=== PATIENT | female | born 1995 | race Caucasian/White ===

== ENCOUNTER 2020-11-06 08:40 | Emergency (ER) | payer BC, SELFPAY ==
[2020-11-06 08:44] VITALS: BP 124/78; PULSE 111; RESP 18; TEMP 36.8; O2SAT 99
--- NOTE | 2020-11-06 08:46 | ED.GENADULT ---
HPI - General Adult General Chief complaint: Neuro Symptoms/Deficit Stated complaint: neuro symptoms/13 weeks Time Seen by Provider: 11/06/20 08:46 Source: patient Mode of arrival: ambulatory Limitations: no limitations History of Present Illness HPI narrative: 25-year-old female comes into the emergency department with complaints of an odd constellation of symptoms. Patient stated that earlier this morning she noted that she was having some numbness in her lower wrist and hand which then went away then it was her forearm which then went away and then she noticed some numbness and tingling in the left side of her face and behind her eye, this went away an event progressed into a headache. Patient endorses sensitivity to light and a headache that rates at a 7 out of 10. She notes that she has never had a migraine like this before but states that her sister does have a history of migraine headaches. Related Data Allergies Allergy/AdvReac Type Severity Reaction Status Date / Time No Known Allergies Allergy Verified 11/06/20 08:48 Review of Systems Review of Systems: Narrative: CONSTITUTIONAL: Denies fever, chills, or sweats. EYES: Denies visual changes, redness, or discharge. ENT: Denies rhinorrhea, congestion, sore throat, or otalgia. CARDIOVASCULAR: Denies chest pain, palpitations, or edema. RESPIRATORY: Denies cough or dyspnea. GASTROINTESTINAL: Denies abdominal pain, nausea, vomiting, or diarrhea. GENITOURINARY: Denies dysuria or hematuria. SKIN: Denies rash or itching. MUSCULOSKELETAL: Denies back pain, joint pain, or myalgia. NEUROLOGIC: Denies numbness, dizziness, or weakness. Endorses headache. PSYCHIATRIC: Denies anxiety or depression. Exam Narrative: Exam Narrative: GENERAL: Well-appearing, well-nourished, and in no acute distress. HEAD: Normocephalic, atraumatic. EYES: PERRLA and EOMI. ENT: Nares clear, no rhinorrhea or epistaxis. Mucous membranes moist. NECK: Supple. No adenopathy or masses. No carotid bruits or JVD CHEST: Clear to auscultation. No respiratory distress. No wheezes rales or rhonchi HEART: Regular rate and rhythm. No murmur heard. Normal peripheral pulses. ABDOMEN: Soft, nontender, nondistended, normal active bowel sounds. EXTREMITIES: Normal range of motion. No edema. SKIN: Warm, dry, no rash. NEURO: No focal deficits, no speech deficits, equal strength and sensation bilaterally in all extremities. Alert and oriented x3. PSYCH: Normal mood and affect. Course Reevaluation(s) Reevaluation #1: Patient resting comfortably in a dark room. I reevaluated her and provided care update. She states that her headache is markedly improved. On arrival she noted it was a 7-8 out of 10. Patient now states it is down to a 2 or 3. She is feeling well and ready to go home. Advised that she follow-up with her primary care physician or PAPER RECLAIMING MACHINE OPERATOR. Time: 09:56 Vital Signs Vital signs: Vital Signs Temperature 36.8 C 11/06/20 08:44 Pulse Rate 111 H 11/06/20 08:44 Respiratory Rate 18 11/06/20 08:44 Blood Pressure 124/78 11/06/20 08:44 Pulse Oximetry 99 11/06/20 08:44 Temperature 36.8 C 11/06/20 08:44 Pulse Rate 111 H 11/06/20 08:44 Respiratory Rate 18 11/06/20 08:44 Blood Pressure 124/78 11/06/20 08:44 Pulse Oximetry 99 11/06/20 08:44 Medical Decision Making MDM Narrative Medical decision making narrative: In brief this 25-year-old female came in to the emergency department with an odd constellation of symptoms of intermittent relapsing numbness on one side of her body. This was then followed by a headache. This numbness and tingling that the patient was describing was likely migraine aura. Her mother is present with her did note that migraines do tend to run in the family. Patient treated conservatively with IV fluids, Reglan/Benadryl and Tylenol. She did note marked improvement in her symptoms. Will discharge patient to follow-up with PAPER RECLAIMING MACHINE OPERATOR. Patient encouraged to r
[2020-11-06] MEDS: ACETAMINOPHEN 500 MG TABLET 1000 MG PO (09:00)
[2020-11-06] MEDS: diphenhydrAMINE HCl INJ 50 MG/ML VIAL 25 MG IV PUSH (09:00)
[2020-11-06] MEDS: METOCLOPRAMIDE HCL INJ 10 MG/2 ML VIAL IV PUSH (09:00)
[2020-11-06] MEDS: LACTATED RINGERS 1,000 ML 999 ML IV CONT (09:00)
[2020-11-06 10:09] VITALS: BP 120/79; PULSE 75; RESP 15; O2SAT 100
== END 2020-11-06 10:16 | disposition home or self-care (01) ==
PROVIDERS: Emergency Provider Emergency Medicine; PCP Registered Nurse
DX: O99.351 Diseases of the nervous system complicating pregnancy, first trimester (principal); G43.109 Migraine with aura, not intractable, without status migrainosus; Z3A.13 13 weeks gestation of pregnancy
CPT/HCPCS: 96361; 96374; 96375; 99284; A9270; J1200; J2765; J7120

== ENCOUNTER 2021-04-21 03:30 | Inpatient (IN) | payer BC, SELFPAY ==
[2021-04-21] VITALS (91 sets, daily range): BP systolic 65–146; BP diastolic 44–109; PULSE 60–127; TEMP 36.6–37.2; O2SAT 98–100; BMI 30.8
--- OUTSIDE RECORDS SUMMARY | 2021-04-21 03:54 | XMS_ITS | Encounter Summary ---
:1995 Author Care Team Providers Name Role Phone Anna Nielsen CHARLES Primary Care Provider [phone] Reason for Visit None recorded. Assessment and Plan 1. Uterine size for dates discre pancy ? US, obstetric, follow-up Discussion Note: None recorded.Patient educational handouts: No information available. Plan of Care Reminders Provider Appointments Ob Routine Lauren Crespo, 04/28/2021 CNM 2:45PM ? Ob Routine Mare Crespo, 05/05/2021 CNM 9:00AM ? Ob Routine Mare Crespo, 05/12/2021 CNM 9:15AM Lab None ? ? recorded. Referral None ? ? recorded. Procedures None ? ? recorded. Surgeries None ? ? recorded. Imaging , [place] [facility], Follow-up 03/23/2021 Medications Name Start Date ? ? Gummies ? Medications Administered None recorded. Vitals None recorded. Results Lab Results None recorded. Allergies Code Code System Name Reaction Severity Onset 0951785 RxNorm Latex ? ?
--- OUTSIDE RECORDS SUMMARY | 2021-04-21 03:54 | XMS_ITS ---
:1995 Author Care Team Providers Name Role Phone RADHA COFFEY APRN Primary Care Provider [phone] Allergies Code Code System Name Reaction Severity Status Onset 4842082 RxNorm Latex ? ? Active ? Medications Name Status Start Date Stop Date ? ? amoxicillin 500 mg capsule Completed ? 11/28 TAKE 1 CAPSULE BY MOUTH 3 TIMES A DAY FOR 5 DAYS amoxicillin 500 mg tablet Completed 07/22/20132013 take 1 tablet (500MG) by oral route every 8 hours escitalopram 10 mg tablet Completed 10/30/20132014 take 1 tablet (10MG) by oral route every day hydrocodone 5 mg-acetaminophen 325 mg tablet Completed ? 11/28/2020 TAKE 1 TABLET BY MOUTH EVERY 4 HOURS NEEDED FOR PAIN Macrobid 100 mg capsule Completed 05/06/2014 05/15/20 14 take 1 capsule by oral route every 12 hours with food Metrogel Vaginal 0.75 % Completed 11/25/2014 08/16/20 15 insert 1 applicatorful by vaginal route every day at bedtime NuvaRing 0.12 mg-0.015 mg/24 hr vaginal Completed 02/02/20 14 02/04/2014 insert 1 vaginal ring by vaginal route every month leave in place for 3 weeks, remove for 1 week Ortho-Cyclen (28) 0.25 mg-35 mcg tablet Completed 01/06/20 16 09/29/2020 take 1 tablet by oral route every day Gummies Active ? Not available Pyridium 200 mg tablet Completed 05/06/2014 5 take 1 tablet by oral route 3 times every day after meals Triveen-Duo DHA 29 mg-1 mg-400 mg oral pack Completed 09/201409/14/2015 take 2 by Oral route once for 30 days Problems Name Status Onset Date Source ?
--- OUTSIDE RECORDS SUMMARY | 2021-04-21 03:54 | XMS_ITS | Encounter Summary ---
:1995 Author Care Team Providers Name Role Phone Anna Nielsen CHARLES Primary Care Provider [phone] Reason for Visit OB visit OB [id number] EDC 05/10/2021 LMP 08/07/2020 Assessment and Plan Assessment Note Patient is _34__weeks . Dis cussed plan. 1. Routine care Discussion Note: None recorded.Patient educational handouts: No information available. Plan of Care Reminders Provider Appointments Ob Routine Lauren Crespo, 04/28/2021 CNM 2:45PM ? Ob Routine Mare Crespo, 05/05/2021 CNM 9:00AM ? Ob Routine Mare Crespo, 05/12/2021 CNM 9:15AM Lab None ? ? recorded. Referral None ? ? recorded. Procedures None ? ? recorded. Surgeries None ? ? recorded. Imaging None ? ? recorded. Medications Name Start Date ? ? Gummies ? Medications Administered None recorded. Vitals Height Weight BMI Blood Pressure 5 ft 3 in 173 lbs 30.6 kg/m2 114/75 mm[Hg] Results Lab Results None recorded.
--- OUTSIDE RECORDS SUMMARY | 2021-04-21 03:55 | XMS_ITS | Encounter Summary ---
:1995 Author Care Team Providers Name Role Phone Anna Nielsen APRN Primary Care Provider [phone] Reason for Visit urinary tract infection Ob software engineer web services asked pt to come in and jose ve urine sample. She is aware OB triage will contact her with recommendations. Spoke with RN she will discuss results with AD. Dalton+mao genao Assessment and Plan Assessment Note UA, urine culture Rx: Will call if culture requires change of antibiotic therapy Call office if symptoms worsen or persis t despite treatment Follow up for WWE 1. Urinary tract infectious dise ase ? urinalysis, dipstick ? culture, urine Discussion Note: None recorded.Patient educational handouts: No information available. Plan of Care Reminders Provider Appointments Ob Routine Lauren Crespo, 04/28/2021 CNM 2:45PM ? Ob Routine Mare Crespo, 05/05/2021 CNM 9:00AM ? Ob Routine Mare Crespo, 05/12/2021 CNM 9:15AM Lab Urinalysis, Neel bettencourt Dipstick 2021 ? Culture, Reddy Ngyuen Urine 2021 Hospital (Lab) Referral None ? ? recorded. Procedures None ? ? recorded. Surgeries None ?
--- OUTSIDE RECORDS SUMMARY | 2021-04-21 03:55 | XMS_ITS | Encounter Summary ---
:1995 Author Care Team Providers Name Role Phone Anna Nielsen CHARLES Primary Care Provider [phone] Reason for Visit OB visit OB [id number] EDC 05/10/2021 LMP 08/07/2020 Assessment and Plan Assessment Note Patient is 24___weeks . Dis cussed plan. 1. Routine care Discussion Note: None recorded.Patient educational handouts: No information available. Plan of Care Reminders Provider Appointments Ob Routine Lauren Crespo, 04/28/2021 CNM 2:45PM ? Ob Routine Mare Crespo, 05/05/2021 CNM 9:00AM ? Ob Routine aMre Crespo, 05/12/2021 CNM 9:15AM Lab None ? ? recorded. Referral None ? ? recorded. Procedures None ? ? recorded. Surgeries None ? ? recorded. Imaging None ? ? recorded. Medications Name Start Date ? ? Gummies ? Medications Administered None recorded. Vitals Height Weight BMI Blood Pressure 5 ft 3 in 157 lbs 27.8 kg/m2 118/80 mm[Hg] Results Lab Results None recorded.
--- OUTSIDE RECORDS SUMMARY | 2021-04-21 03:55 | XMS_ITS | Encounter Summary ---
:1995 Author Care Team Providers Name Role Phone Anna Nielsen CHARLES Primary Care Provider [phone] Reason for Visit OB visit Assessment and Plan 1. Routine care Discussion Note: None recorded.Patient [...] BMI Blood Pressure 5 ft 3 in 163 lbs 28.9 kg/m2 116/76 mm[Hg] Results Lab Results None recorded. Allergies Code Code System Name Reaction Severity Onset [id number] RxNorm Latex ? ? ? Pro
--- OUTSIDE RECORDS SUMMARY | 2021-04-21 03:55 | XMS_ITS ---
:1995 Author Care Team Providers Name Role Phone [facility] Primary Care Provider Unavailable Allergies Code Code System Name Reaction Severity Status Onset [id number] RxNorm Latex Rash ? Active ? Medications Name Status Start Date Stop Date ? ? Afluria Qd (36 mos up)(PF)60 mcg (15 mcg x4)/0.5 mL IM s yringe Active ? Not available PHARMACY ADMINISTERED amoxicillin 500 mg capsule Completed ? 08/30 TAKE 1 CAPSULE BY MOUTH 3 TIMES A DAY FOR 5 DAYS azithromycin 250 mg tablet Completed ? 12/06 diclofenac sodium 75 mg tablet,delayed Completed ? 12/06/2016 release escitalopram 20 mg tablet Completed ? 2016 Flucelvax Quad 9998-4799 (PF) 60 mcg (15 mcg x 4)/0.5 mL IM syri nge Completed ? 08/30/2020 TO BE ADMINISTERED BY PHARMACIST FOR IMMUNIZATION fluoxetine 20 mg capsule Completed ? 018 Fluvirin 7059-6936 45 mcg (15 mcg x 3)/0.5 mL intramus cular suspension Completed ? 12/06/2016 ADM 0.5ML IM UTD Fluzone Quad (PF) 60 mcg (15 mcg x 4)/0.5 mL IM syring e Completed ? 08/30/2020 TO BE ADMINISTERED BY PHARMACIST FOR IMMUNIZATION hydrocodone 5 mg-acetaminophen 325 mg tablet Completed ? 08/30/2020 TAKE 1 TABLET BY MOUTH EVERY 4 HOURS NEEDED FOR PAIN metronidazole 500 mg tablet Active ? Not available phenazopyridine 100 mg tablet Completed ? TAKE 1 TABLET BY MOUTH 3 TIMES A DAY AFTER MEALS Sprintec (28) 0.25 mg-35 mcg tablet Completed ? 12/06/2016 Problems No Known Problems Procedures
--- OUTSIDE RECORDS SUMMARY | 2021-04-21 03:55 | XMS_ITS | Encounter Summary ---
:1995 Author Care Team Providers Name Role Phone Anna Nielsen CHARLES Primary Care Provider [phone] Reason for Visit OB visit Assessment and [...] BMI Blood Pressure 5 ft 3 in 162 lbs 28.7 kg/m2 115/80 mm[Hg] Results Lab Results None recorded. Allergies Code Code System Name Reaction Severity Onset [id number] RxNorm Latex ? ? ? Pro
--- NOTE | 2021-04-21 03:56 | LDADM ---
This patient, Zoila Collier, was admitted to Labor/Delivery/Recovery 105 on 04/21/21 at 03:30. Plans for labor, pain management and were discussed with patient. Patient/family oriented to hospital policies and general routines including ID bracelet, bed and alarms, visiting hours, pain management, procedures, bathroom and other care routines, personal items, smoking policy, room service/diet and guest tray routines, infant security routines, and visiting hours. Patient/Family are encouraged to report perceived risks to care and to ask questions if they do not understand what they are told or what they should do. See OBIX for further documentation.
[2021-04-21 04:19] LABS: Basophils Absolute Auto 0.1 K/mm3 (0.0-0.1); Basophils Percent Auto 0.7 % (0.2-1.2); Eosinophils Absolute Auto 0.5 K/mm3 (0-0.3); Eosinophils Percent Auto 3.7 % (0-4.4); Hematocrit 32.2 % (37.0-47.0); Hemoglobin 10.5 g/dL (12.0-15.0); Immature Granulocyte Absolute 0.08 K/mm3 (0.00-0.031); Immature Granulocyte Percent A 0.6 % (0-0.5); Lymphocytes Absolute Auto 2.94 K/mm3 (0.9-3.2); Lymphocytes Percent Auto 21.5 % (18.3-44.2); Mean Corpuscular HGB Conc 32.6 g/dl (32-36); Mean Corpuscular Hemoglobin 28.7 pg (26-34); Mean Platelet Volume 9.5 fl (7.4-10.4); Monocytes Absolute Auto 0.9 K/mm3 (0.1-0.6); Monocytes Percent Auto 6.5 % (2.6-8.5); Neutrophils Absolute Auto 9.2 K/mm3 (1.3-6.7); Platelet Count Result 315 k/mm3 (150-375); Red Blood Count 3.66 M/mm3 (4.2-5.4); Red Cell Distribution Width 12.7 % (11.5-14.5); White Blood Count 13.7 K/mm3 (4.5-10.0)
[2021-04-21] MEDS: LACTATED RINGERS 1,000 ML 125 ML IV CONT ×2 (05:05→08:40)
[2021-04-21] MEDS: OXYTOCIN 30 UNITS/NS 500 ML 30 UNITS/500 ML BAG 125 UNITS IV CONT ×2 (05:06→14:34)
--- NOTE | 2021-04-21 07:22 | WPDOBADMIT ---
Obstetrics - Admit Note Admission Note: record reviewed. No pertinent additions to the history and/or any subsequent changes in the physical findings that are not consistent with the expected course of the were found. SROM at home, admitted to Additions to the history and/or subsequent changes in the physical findings follow. None.
[2021-04-21] MEDS: fentaNYL CITRATE INJ (*CRX) 100 MCG/2 ML VIAL 50 MCG IV PUSH ×2 (08:45→09:41)
[2021-04-21] MEDS: ONDANSETRON INJ 4 MG/2 ML VIAL IV PUSH (08:45)
--- NOTE | 2021-04-21 08:49 | WPDANESEPP ---
Anes - Eval Pre Procedure Procedure: Labor epidural Date/Time: 04/21/21 08:49 Surgeon: Petey Preop Diagnosis: Abd pain with contractions Pre Op Diagnosis: SROM Patient Data Age: 26 Gender: F Height: 1.6 m Weight: 79 kg Last Vital Signs Temp 97.9 F 04/21/21 06:31 Pulse 67 04/21/21 08:46 BP 136/88 04/21/21 08:46 Allergies Allergy/AdvReac Type Severity Reaction Status Date / Time latex Allergy Rash Verified 04/10/21 12:46 Home Medications Medication Instructions Recorded Confirmed Type PNV cmb#95-ferrous fumarate-FA 1 tablet PO DAILY 04/10/21 04/10/21 History [] Laboratory Tests 04/21/21 04/21/21 04/21/21 04:10 04:10 04:10 WBC 13.7 K/mm3 H K/mm3 (4.5-10.0) RBC 3.66 M/mm3 L M/mm3 (4.2-5.4) Hgb 10.5 g/dL L g/dL (12.0-15.0) Hct 32.2 % L % (37.0-47.0) MCV 88.0 fl fl (80-100) MCH 28.7 pg pg (26-34) MCHC 32.6 g/dl g/dl (32-36) RDW 12.7 % % (11.5-14.5) Plt Count 315 k/mm3 k/mm3 (150-375) MPV 9.5 fl fl (7.4-10.4) Immature Gran % (Auto) 0.6 % H % (0-0.5) Neut % (Auto) 67.0 % % (45.5-73.1) Lymph % (Auto) 21.5 % % (18.3-44.2) Parmer % (Auto) 6.5 % % (2.6-8.5) Eos % (Auto) 3.7 % % (0-4.4) Baso % (Auto) 0.7 % % (0.2-1.2) Lymph # (Auto) 2.94 K/mm3 K/mm3 (0.9-3.2) Parmer # (Auto) 0.9 K/mm3 H K/mm3 (0.1-0.6) Eos # (Auto) 0.5 K/mm3 H K/mm3 (0-0.3) Baso # (Auto) 0.1 K/mm3 K/mm3 (0.0-0.1) Abs Immat Gran (auto) 0.08 K/mm3 H K/mm3 (0.00-0.031) Absolute Neuts (auto) 9.2 K/mm3 H K/mm3 (1.3-6.7) Absolute Nucleated RBC 0.0 K/mm3 K/mm3 (0.0-0.012) Nucleated RBC % 0.0 % % (0.0-0.2) RPR Pending Blood Type A Positive Antibody Screen Negative Patient hx anesthesia problems: none Family hx anesthesia problems: none PMFSH Past Medical History Medical History (Updated 04/21/21 @ 08:50 by Delta Alcantar CRNA) Anxiety Overweight (BMI 25.0-29.9) and not yet delivered Family History Family History Other Rheumatoid arthritis Mother Rheumatoid arthritis Social History Social History Smoking status: Never smoker Substance use: never Gender identity (if verbalized by the patient): Female Spiritual care concerns: No Exam Day of Procedure 04/21/21 08:49 Patient weight: overweight Airway: Mallampati scale class II Neurological: alert and oriented
[2021-04-21] MEDS: PHENYLEPHRINE 1,000 MCG/10 ML SYRINGE 100 MCG IV PUSH (09:50)
[2021-04-21 10:28] LABS: Rapid Plasma Reagin Non-Reactive (NonReactive)
--- NOTE | 2021-04-21 14:06 | P.PCNOB_ITS ---
OB - Delivery Note Procedure Delivery date: 04/21/21 Procedure: vaginal delivery Intrapartal events: None Delivery augmentation: pitocin Delivery monitor: external FHT and external uterine Route of delivery: Laceration Description: Perineal - 2nd Degree Delivery repair: vicryl Specimen: No Quantitative Blood Loss (ml): 125 Anesthesia type: Epidural Disposition: floor [place] Baby Date of : 04/21/21 Time of : 13:56 Weeks of gestation at delivery: 37 Infant gender: Male Weight (pounds): 6 Weight (ounces): 15 presentation: vertex position: Right Occiput Anterior Placenta delivery description: Spontaneous cord vessel description: 3 Vessels, Nuchal Cord, Loose, Reduced and Clamped/Cut score one minute: 9 score five minutes: 9 Narrative: mother and baby skin to skin in stable condition
[2021-04-21] MEDS: WITCH HAZEL 40 PADS 1 PAD TOPICAL (16:25)
[2021-04-21] MEDS: BENZOCAINE 20% AER SPR (*SP) 56 GM CAN 1 SPRAY TOPICAL (16:25)
[2021-04-22 01:09] VITALS: BP 110/62; PULSE 80; PULSE 83; RESP 16; TEMP 36.4; O2SAT 95
[2021-04-22 05:19] VITALS: BP 111/63; PULSE 67; PULSE 77; RESP 15; TEMP 36.3; O2SAT 98
[2021-04-22 05:20] VITALS: BP 111/63; PULSE 65
[2021-04-22 05:41] LABS: Hematocrit 31.9 % (37.0-47.0); Hemoglobin 10.4 g/dL (12.0-15.0)
[2021-04-22 08:15] VITALS: BP 97/53; PULSE 74; TEMP 36.8
--- NOTE | 2021-04-22 10:33 | P.PNOB_ITS ---
OB - PN: Subj Subjective Date/time seen: 04/22/21 10:33 Patient comments: no complaints baby status: doing well [place] feeding status: exclusively breast feeding OB - PN: Obj Data Labs CBC & Chem 7: 04/22/21 05:23 Labs: Laboratory Results - last 24 hr 04/22/21 05:23 Hgb 10.4 L Hct 31.9 L OB - PN A/P Plan day: 1 Plan: routine care and discharge home Time Spent With Patient Time: Total time spent is greater than 50% in coordination of care (as d ocumented) at patient's floor/unit and/or counseling patient: Review of Systems Review of Systems: All systems reviewed & are unremarkable except as noted in HPI and below Exam 2 Narrative: perineum clean and dry Const: General: cooperative Nutritional Appearance: well nourished Psych: Insight: Good insight present (Psych) Judgement: Good judgement present (Psych)
--- NOTE | 2021-04-22 10:35 | PM.OBDSVD ---
DS: Admitting Diagnosis Admitting Diagnosis SROM OB - DS: Summary OB Procedures : None OB Procedures Intrapartum: Spontaneous Vag Delivery OB Procedures: : None Time Spent with Patient Time attestation: Total time spent providing and/or coordinating discharge services: DS: Data Data Completed and Pending Labs on day of discharge: Labs from last 24 hours 04/22/21 05:23 Hgb 10.4 L Hct 31.9 L Discharge Plan Discharge Attending physician on discharge: Sergio Angelo Discharging Clinician: Mare Crespo Patient Disposition: Home, Self-Care Activity: pelvic rest Diet: regular Patient Instructions: Antibiotic Form Stand Alone Forms: General Discharge Information Follow-up/Referrals: Mare Crespo, MIKALM [Certified Nurse Automotive Sales Associate] - 4 Weeks Discharge Medications: New ibuprofen 600 mg Tablet 600 mg PO Q6H PRN (Reason: Cramping) Qty: 30 RF: 0 Continued PNV cmb#95-ferrous fumarate-FA [] 28 mg iron- 800 mcg Tablet 1 tablet PO DAILY RF: 0 Date of admission: 04/21/21 03:30 Primary Care Provider: GiaAnna Admitting Provider: Sergio Angelo Attending physician on admission: Sergio Angelo Condition: Stable
[2021-04-22] MEDS: MULTIVIT/MIN/PREN/FOL AC/IRON TABLET 1 TAB PO (11:22)
[2021-04-22] MEDS: DOCUSATE SODIUM 100 MG CAPSULE PO (11:22)
[2021-04-22 13:44] VITALS: BP 114/57; PULSE 75; RESP 14; TEMP 36.8
--- NOTE | 2021-04-22 15:25 | PC.NURSE ---
Patient transferred to post room #285 from labor and delivery. Support person present. Oriented to unit, room, information board, rooming in, admission packet and security measures. Patient verbalizes understanding.
[2021-04-22 19:30] VITALS: BP 110/63; PULSE 80; RESP 18; TEMP 36.9; O2SAT 98
[2021-04-23] MEDS: ACETAMINOPHEN 325 MG TABLET 650 MG PO (01:04)
[2021-04-23 08:00] VITALS: BP 112/55; PULSE 86; RESP 18; TEMP 36.8; O2SAT 98
--- NOTE | 2021-04-23 08:50 | PC.NURSE ---
Patient viewed the discharge video Mother & Baby Care, The First Two Weeks . Patient was given the opportunity and encouraged to ask questions. Patient verbalized understanding of information shared and has been given the mother/baby guide for home reference.
[2021-04-23] MEDS: MULTIVIT/MIN/PREN/FOL AC/IRON TABLET 1 TAB PO (08:51)
[2021-04-23] MEDS: DOCUSATE SODIUM 100 MG CAPSULE PO (08:51)
[2021-04-23] MEDS: IBUPROFEN 600 MG TABLET PO (08:51)
--- NOTE | 2021-04-23 10:33 | PM.OBPNVD ---
OB - PN: Subj Subjective Date/time seen: 04/23/21 10:33 Patient comments: no complaints baby status: doing well [place] feeding status: breast and bottle feeding OB - PN: Obj Data Labs CBC & Chem 7: 04/22/21 05:23 OB - PN A/P Plan day: 2 Plan: routine care and discharge home Time Spent With Patient Time: Total time spent is greater than 50% in coordination of care (as documented) at patient's floor/unit and/or counseling patient: Review of Systems Review of Systems: All systems reviewed & are unremarkable except as noted in HPI and below Exam Const: General: cooperative and healthy appearing Psych: Insight: Good insight present (Psych) Judgement: Good judgement present (Psych)
--- NOTE | 2021-04-23 10:34 | PM.OBDSVD ---
DS: Admitting Diagnosis Admitting Diagnosis SROM OB - DS: Summary OB Procedures : None OB Procedures Intrapartum: Spontaneous Vag Delivery OB Procedures: : None Time Spent with Patient Time attestation: Total time spent providing and/or coordinating discharge services: Discharge Plan Discharge Attending physician on discharge: Sergio Angelo Discharging Clinician: Mare Crespo Patient Disposition: Home, Self-Care Activity: pelvic rest Diet: regular Patient Instructions: Antibiotic Form Stand Alone Forms: General Discharge Information Follow-up/Referrals: Mare Crespo CNM [Certified Nurse Aligner Barrel And Receiver] - 4 Weeks Discharge Medications: New ibuprofen 600 mg Tablet 600 mg PO Q6H PRN (Reason: Cramping) Qty: 30 RF: 0 Continued PNV cmb#95-ferrous fumarate-FA [] 28 mg iron- 800 mcg Tablet 1 tablet PO DAILY RF: 0 Date of admission: 04/21/21 03:30 Primary Care Provider: GiaAnna Admitting Provider: Sergio Angelo Attending physician on admission: Sergio Angelo Condition: Stable
[2021-04-26 09:46] VITALS: BP 119/74; PULSE 110; RESP 20; TEMP 38.2; O2SAT 100
--- NOTE | 2021-04-27 09:07 | PM.OBDSVD ---
DS: Admitting Diagnosis Admitting Diagnosis r/o SROM OB - DS: Summary OB Procedures : None OB Procedures Intrapartum: Other (undelivered) OB Procedures: : None Time Spent with Patient Time attestation: Total time spent providing and/or coordinating discharge services: Discharge Plan Discharge Attending physician on discharge: Sergio Angelo Consulting providers: Mare Crespo Discharging Clinician: Mare Crespo Patient Disposition: Home, Self-Care Activity: pelvic rest Diet: regular Discharge Instructions: Education: Mom and Baby Guide and Preeclampsia Handout Given to: Mother Follow-Up: Call your delivering provider's office for an appointment to be seen in: 4 Weeks Mom and baby [facility] the follow-up appointment. Appointment Date/Time: April 26, 2021 at 10:00 am What to expect at your follow-up visit: Physical Assessment Call [phone] if you are unable to keep your appointment time. BREAST CARE: * Wear a snug supportive bra. * For engorgement discomfort: Breast Feeding: * Apply warm moist washcloths * Express milk as needed to relieve engorgement * Wear loose clothing Bottle Feeding: * May apply ice packs * For sore nipples: * Identify correct latch-on * Apply warm moist washcloths before and after nursing * Air dry nipples after nursing * May apply Lansinoh cream to nipples EPISIOTOMY/PERINEAL CARE: * Until bleeding stops, use your carlos bottle after urinating * Change your pad frequently throughout the day * You may take sitz baths several times a day (fill your bathtub with warm water and soak for 20 minutes.) Do NOT bathe in the water * No tub baths until seen by your physician - You may shower ACTIVITY: * Rest as much as possible. * Do not exercise or lift anything heavier than your baby (such as laundry or other children.) * Avoid stairs or driving as much as possible. * Do not put anything into the vagina. No douching, tampons, or sexual activity until seen by physician. NOTIFY PHYSICIAN IF YOU HAVE ANY QUESTIONS OR IF ANY OF THE FOLLOWING SYMPTOMS OCCUR: * If your episiotomy or stitches becomes red, swollen, or more painful than what you have experienced in the hospital. * If your vaginal bleeding becomes foul smelling. * If your vaginal bleeding becomes more heavy than a period or if your bleeding changes from pink to bright red. However, you may pass an occasional walnut-sized clot once or twice for the first week . * If you experience a sharp, shooting pain in you calves. * If you discover a hard, reddened area on your breast or if you experience flu-like symptoms. DIET: * Eat regular, well-balanced meals. * Drink plenty of fluids daily. If , drink to thirst. Stand Alone Forms: General Discharge Information Follow-up/Referrals: Mare Crespo CNM [Certified Nurse Human Resources Support Specialist] - 4 Weeks Discharge Medications: New ibuprofen 600 mg Tablet 600 mg PO Q6H PRN (Reason: Cramping) Qty: 30 RF: 0 Continued PNV cmb#95-ferrous fumarate-FA [] 28 mg iron- 800 mcg Tablet 1 tablet PO DAILY RF: 0 Date of admission: 04/21/21 03:30 Primary Care Provider: GiaAnna Admitting Provider: Sergio Angelo Attending physician on admission: Sergio Angelo Condition: Stable
== END 2021-04-23 12:23 | disposition home or self-care (01) | DRG 807 ==
LOC: ANHLDR 04:12 → ANHOBPP 17:56 → ANHOB2 04-22 15:49
PROVIDERS: Advanced Practice Midwife; Admitting Provider Obstetrics & Gynecology; PCP Registered Nurse; Visit Provider Obstetrics & Gynecology
DX: O69.81X0 Labor and delivery complicated by cord around neck, without compression, not applicable or unspecified (principal); Z37.0 Single live birth; O70.1 Second degree perineal laceration during delivery; Z3A.37 37 weeks gestation of pregnancy
CPT/HCPCS: 36415; 85014; 85018; 85025; 86592; 86850; 86900; 86901; A9270; J2370; J2405; J2590; J2795; J3010; J7120

== ENCOUNTER 2021-07-04 12:00 | Outpatient (RCR) | payer BC, SELFPAY ==
--- NOTE | 2021-07-04 12:05 | PC.NURSE ---
IN 1010 OUT 1205 HISTORY: Pt. delivered at [facility] at 37 weeks. had no complications after delivery. Mother had no complications after delivery. is now 9 weeks old. Infant appears to be well cared for. Infant has been seen by ICP as scheduled. Infant last seen by ICP at 2 month check up. Mother reports: Currently at 8 wets per day and 6 yellow seedy stools per day. weight: 6#15 Discharge weight: Last Weight: 11#12 at 2 month visit Mother feels has a lip tie. Mother has struggled with latch since . Infant was early and very sleepy at breast, required supplement within the first day. Mother has had pain with feeding and has pumped and bottle fed for the first month, then made attempts to return to breast at least once per day and for night feedings. Mother states when does latch he will nurse for long periods up to 45 minutes and continue to act hungry with continued rooting. Mother will always pump after putting infant to breast and bottle feed. Infant will take 2-3 oz of EBM per feeding every 2-4 hours. Mother is pumping 6 oz every 2-4 hours. Mother has no difficulties or discomfort with pumping. Mother wishes: Evaluation of lip tie and possible posterior tongue tie. Return to breast with less pumping and bottle feeding. OBSERVATION: Tongue is not able to move freely past gum ridge, tongue not observed cupping or thrusting past gum ridge. Upper lip appears o have a thick frenulum into upper gum ridge. Mother has everted nipples with skin intact no redness, blisters, scabbing or abrasions noted. Mother reports tenderness and pain with feeding. Assisted with to breast. Reviewed positioning/alignment in cross cradle, holding breast in ?U? hold and guided asymmetrical latch on. Reviewed rational for each. able to latch within a few attempts. Latch is shallow, demonstrated how to adjust latch more deeply while feeding. nursed eagerly with steady draws and occasional swallowing noted for a short burst before slipping to shallow latch. Infant is unable to maintain deep latch. Suck is weak with long pausing. Reviewed signs of a correct latch, effective nursing and suck swallow ratio. Suggested mother stimulate while feeding to increase stimulate, increase intake and to assist with maintaining deep latch. Infant was unable to maintain latch without discomfort to mother. Infant would slip to shallow latch causing tenderness. Demonstrated how to adjust latch more deeply while feeding if needed. Offered and explained the nipple shield to attempt to assist with maintaining a deep latch. Instructions given on application and cleaning of shield. Discussed nipple shield precautions and possible complications. Patient able to return demonstration on proper application of shield. Discussed the need to continue pumping if infant continues to nurse with the shield. Patient verbalizes understanding. Infant was able to latch deeply with shield with less discomfort to mother. continued with weak slow chewy suck. Infant at breast for 20 minutes with long pausing and occasional swallowing noted. Infant fussy and hungry after . Mother completed feeding with EBM bottle. Discussed the difference of effective vs ineffective feeding. Reviewed infant is latching with good burst of suckling, he is not feeding consistently with adequate milk transfer at this time and continues to need to be supplement after . Feeding options discussed, Feeding Plan is for mother to put to breast each feeding for up to 15 minutes using the nipple shield if she chooses. Discussed if infant begins to nurse effectively with long draws and frequent swallowing noted, may decrease supplementation and discontinue pumping. Suggested mother have LC charter coordinator observe f
== END 2021-09-28 13:55 | disposition home or self-care (01) ==
LOC: ANHOBOP 12:00
PROVIDERS: PCP Registered Nurse; Visit Provider Pediatrics
DX: Z39.1 Encounter for care and examination of lactating mother (principal)
CPT/HCPCS: 99212; G0463

== ENCOUNTER 2022-10-13 14:51 | Emergency (ER) | payer BC, SELFPAY ==
[2022-10-13 15:32] VITALS: BP 108/59; PULSE 98; RESP 16; TEMP 37.5; O2SAT 99
--- NOTE | 2022-10-13 16:06 | ED.EYEPROB ---
HPI - Eye Problem General Chief complaint: Eye Problems Stated complaint: pink eye Time Seen by Provider: 10/13/22 16:06 Source: patient, RN notes reviewed and old records reviewed Mode of arrival: ambulatory Limitations: no limitations History of Present Illness HPI Narrative: 27-year-old female presents to the [facility] with eye redness and crusting over for the last 2-3 days. Eyes were crusted over this morning. Feels like there is sand in her eyes. Does not wear contact lenses. Related Data Allergies Allergy/AdvReac Type Severity Reaction Status Date / Time latex Allergy Rash Verified 10/13/22 15:35 Review of Systems Review of Systems: All systems reviewed & are unremarkable except as noted in HPI and below Constitutional: Constitutional: Reports no additional constitutional complaints Eyes: Eyes: Reports as per HPI ENT: Reports system reviewed and no additional complaints, except as documented Cardiovascular: Cardiovascular: Reports no additional cardiovascular complaints, Denies chest pain and Denies dyspnea Respiratory: Respiratory: Reports no additional respiratory complaints, Denies chest congestion, Denies cough and Denies dyspnea Gastrointestinal: Gastrointestinal: Reports no additional gastrointestinal complaints, Denies abdominal pain, Denies nausea and Denies vomiting Musculoskeletal: Musculoskeletal: Reports no additional musculoskeletal complaints Integumentary/Breasts: Skin/Breast: Reports system reviewed and no additional complaints, except as docu Neurologic: Reports system reviewed and no additional complaints, except as documented Psychiatric: Psychiatric: Reports no additional psychiatric complaints Allergic/Immunologic: Allergic/Immunologic: Reports no additional allergic/immunologic complaints [facility] Past Medical History Medical History Anxiety Overweight (BMI 25.0-29.9) and not yet delivered Family History Family History Other Rheumatoid arthritis Mother Rheumatoid arthritis Social History Social History Smoking status: Never smoker Substance use: never Gender identity (if verbalized by the patient): Female Spiritual care concerns: No Comments At the time of my signature, I reviewed and agree with the nursing past medical, surgical, social, and family history. There is no relevant family history pertinent to the patient complaint. Exam Const: General: cooperative, healthy appearing, comfortable, no acute distress, well developed, alert and well nourished Nutritional Appearance: well nourished Orientation/consciousness: patient oriented x3 Limitations: no limitations HENMT: Head: normal to inspection Ears: hearing grossly normal bilaterally and external ears normal Face/Nose/Sinus: Normal external nose present, Normal nares present, Normal nasal mucous membranes and turbinates present and normal facial exam Face and sinus: normal facial exam Mouth: Yes Normal oral and palatal mucosa present, Yes lip normal and Yes moist mucous membranes Throat: posterior oropharynx normal and uvula midline Eyes: General: appearance normal, both eyes and all related structures Alignment and Position: alignment normal Periorbital: periorbital findings normal Conjunctivae: conjunctival abnormality bilateral conjunctival injection localized (Lower lids) Pupils: Equal, round and reactive pupils present EOM: EOMs intact bilaterally Neck: Neck: normal visual inspection, full ROM, no lymphadenopathy and no meningeal signs Chest: Chest palpation & inspection: normal inspection of the chest Resp: Effort & Inspection: normal respiratory effort and able to speak in complete sentences Auscultation: clear to auscultation bilaterally, no crackles, no rales, no rhonchi and no wheezes Cardio: Rate: regular rate Rhythm: re
== END 2022-10-13 16:15 | disposition home or self-care (01) ==
PROVIDERS: Emergency Provider Nurse Practitioner; PCP Registered Nurse
DX: H10.33 Unspecified acute conjunctivitis, bilateral (principal)
CPT/HCPCS: 99213; G0463

== ENCOUNTER 2024-07-19 08:31 | Emergency (ER) | payer OTHER, SELFPAY ==
--- NOTE | 2024-07-19 08:33 | ED.SKABFB ---
HPI - Skin/Abscess/Foreign Bdy General Chief complaint: Skin/Abscess/Foreign Body Stated complaint: rash on body Time Seen by Provider: 07/19/24 08:52 Source: patient, RN notes reviewed and old records reviewed Mode of arrival: ambulatory Limitations: no limitations History of Present Illness HPI narrative: 29-year-old female presents to the [facility] with a rash to her body. Patient states that it started Saturday or Saturday last week. Has been applying calamine and Benadryl cream. Worse of the rash is the volar aspect left forearm. Small blister with surrounding erythema, very dry. Not warm to touch. Patient states right before she developed this rash she was clearing weeds/brush at her new house. Related Data Home Medications Medication Instructions Recorded Confirmed levonorgestrel 120 mcg-e.estradiol 1 patch transdermal WEEKLY 07/19/24 07/19/24 30 mcg/24 hr weekly transderm patch (Twirla) Allergies Allergy/AdvReac Type Severity Reaction Status Date / Time latex Allergy Rash Verified 07/19/24 08:32 Review of Systems Review of Systems: All systems reviewed & are unremarkable except as noted in HPI and below Constitutional: Constitutional: Reports no additional constitutional complaints ENT: Reports system reviewed and no additional complaints, except as documented Cardiovascular: Cardiovascular: Reports no additional cardiovascular complaints, Denies chest pain and Denies dyspnea Respiratory: Respiratory: Reports no additional respiratory complaints, Denies chest congestion, Denies cough and Denies dyspnea Gastrointestinal: Gastrointestinal: Reports no additional gastrointestinal complaints, Denies abdominal pain, Denies nausea and Denies vomiting Musculoskeletal: Musculoskeletal: Reports no additional musculoskeletal complaints Integumentary/Breasts: Skin/Breast: Reports as per HPI, Reports erythema and Reports rash PMFSH Past Medical History Medical History Anxiety Overweight (BMI 25.0-29.9) and not yet delivered Family History Family History Other Rheumatoid arthritis Mother Rheumatoid arthritis Social History Social History Smoking status: Never smoker Substance use: never Gender identity (if verbalized by the patient): Female Spiritual care concerns: No Comments At the time of my signature, I reviewed and agree with the nursing past medical, surgical, social, and family history. There is no relevant family history pertinent to the patient complaint. Exam Const: General: cooperative, healthy appearing, comfortable, no acute distress, well developed, alert and well nourished Nutritional Appearance: well nourished Orientation/consciousness: patient oriented x3 Limitations: no limitations HENMT: Head: normal to inspection Ears: hearing grossly normal bilaterally and external ears normal Face/Nose/Sinus: Normal external nose present, normal facial exam and face symmetric Face and sinus: normal facial exam and face symmetric Mouth: Yes Normal oral and palatal mucosa present, Yes lip normal and Yes tongue normal Throat: posterior oropharynx normal, uvula midline and no uvular edema Eyes: General: appearance normal, both eyes and all related structures Alignment and Position: alignment normal Periorbital: periorbital findings normal Neck: Neck: normal visual inspection, full ROM, no lymphadenopathy and no meningeal signs Chest: Chest palpation & inspection: normal inspection of the chest Resp: Effort & Inspection: normal respiratory effort and able to speak in complete sentences Auscultation: clear to auscultation bilaterally, no crackles, no rales, no rhonchi and no wheezes Cardio: Rate: regular rate Skin: General skin exam: normal color and no rashes or lesions noted Lesions: no lesions Rashes: rashes noted Wounds: no wounds Other: Very dry left volar forearm skin, with induration, small clear fluid blister. No increased warmth Neuro: General: patient oriented x3, gait normal, tone normal, moves all extremities and no meningeal signs Cognition (Neuro): normal cognition Speech: normal speech Gait exam (Neuro): Normal gait present Extrem: General: normal to inspection, full ROM, capillary refill normal and normal gait Psych: Appearance: grossly normal and well kempt Mental Status: mental status grossly normal Speech and movement: Normal speech and movement present and Clear speech present Affect: normal affect Attitude: cooperative Course Course Level of Care: Express Care Visit Vital Signs Vital signs: Vital Signs Temperature 98.1 F 07/19/24 08:48 Pulse Rate 82 07/19/24 08:48 Respiratory Rate 16 07/19/24 08:48 Blood Pressure 105/68 07/19/24 08:48 Pulse Oximetry 99 07/19/24 08:48 Oxygen Delivery Room Air 07/19/24 08:48 Temperature 98.1 F 07/19/24 08:48 Pulse Rate 82 07/19/24 08:48 Respiratory Rate 16 07/19/24 08:48 Blood Pressure 105/68 07/19/24 08:48 Pulse Oximetry 99 07/19/24 08:48 Oxygen Delivery Room Air 07/19/24 08:48 Reviewed MDM - Skin/Abscess/Foreign Bdy MDM Narrative Medical decision making narrative: Patient sitting comfortably in exam room. Nontoxic, vitals stable. Patient in no acute distress Patient presents for a 1 week history of a rash. Appears more to be a contact dermatitis most likely due to plants Patient appropriate for outpatient treatment and follow-up Some parts of this dictation were generated by voice recognition software and may contain typographical and/or grammatical inaccuracies. Discharge instructions reviewed with patient, as well as provided in writing per nursing staff. The instructions also include specific and strict return/GO TO THE ER as well as f/u information. All questions have been answered, and the patient deny any further questions with discharge and discharge plan. Differential Diagnosis Differential diagnosis: Likely abscess of skin or subcutaneous tissue, urticaria, cellulitis, eczema, impetigo and contact dermatitis Critical Care Time Critical Care Time Critical Care Time: No Discharge Plan Discharge Clinical Impression: Contact dermatitis Qualifiers: Contact dermatitis type: unspecified Contact dermatitis trigger: unspecified trigger Qualified Code(s): L25.9 - Unspecified contact dermatitis, unspecified cause Patient Disposition: Home, Self-Care Condition: Stable Instructions: Antibiotic Form, Contact Dermatitis (ED) Additional Instructions: The most important part of your care is follow up with Primary care provider. Take Benadryl 25-50 mg every 8 hours for itching Take Zyrtec every day Take Pepcid 20mg daily for 7 days Take the steroids starting today, take every morning. Avoid hot showers, Take cool showers. Hot showers will make rashes worse Apply cool compresses every 2-3 hours for 15 minutes Go to the ER for new or worsening symptoms such as shortness of breath. Patient Language: Luxembourgish Prescriptions: New triamcinolone acetonide 0.1 % cream 1 applic topical BID Qty: 30 0RF prednisone 20 mg tablet See Rx Instructions .Route .COMPLEX Qty: 20 0RF Rx Instructions: Take 60 mg daily for 3 days, 40 mg daily for 3 days, 20 mg daily for 3 days, 10mg day for 3 days No Action Twirla 120-30 mcg/24 hr patch weekly 1 patch transdermal WEEKLY Follow-up/Referrals: Gia,ARNOLD Castillo [Primary Care Provider] - 2 Weeks ([facility] ) Stand Alone Forms: Work/School Release IP Time of Disposition: 09:15
[2024-07-19 08:48] VITALS: BP 105/68; PULSE 82; RESP 16; TEMP 36.7; O2SAT 99
== END 2024-07-19 09:21 | disposition home or self-care (01) ==
PROVIDERS: Emergency Provider Nurse Practitioner; PCP Registered Nurse
DX: L25.9 Unspecified contact dermatitis, unspecified cause (principal)
CPT/HCPCS: 99213; G0463

== ENCOUNTER 2024-12-23 16:09 | Emergency (ER) | payer OTHER, SELFPAY ==
[2024-12-23 16:20] VITALS: BP 113/58; PULSE 84; RESP 20; TEMP 37; O2SAT 99
--- NOTE | 2024-12-23 16:22 | ED_ITS ---
HPI - Skin/Abscess/Foreign Bdy General Chief complaint: Skin/Abscess/Foreign Body Stated complaint: boil under left butt cheek, painful Time Seen by Provider: 12/23/24 16:30 Source: patient and RN notes reviewed Mode of arrival: ambulatory Limitations: dementia History of Present Illness HPI narrative: 29-year-old female presents with concern for painful bump on her left butt cheek. Reports she noticed it last night, she sought today noticed that was redness around it. She denies fever, aches, chills, sweats. Denies drainage the area MD complaint: other (Redness) Related Data Allergies Allergy/AdvReac Type Severity Reaction Status Date / Time latex Allergy Rash Verified 12/23/24 16:12 Review of Systems Review of Systems: CONSTITUTIONAL: Denies malaise, chills, sweats, or fever. SKIN: Reports painful red bump under her left buttock surrounded by redness. Denies purulent drainage, vesicles, bullae, numbness, pain beyond proportion MUSCULOSKELETAL: Denies joint pain or myalgia. NEUROLOGIC: Denies headache. All systems reviewed & are unremarkable except as noted in HPI and below PMFSH Past Medical History Medical History Anxiety Overweight (BMI 25.0-29.9) and not yet delivered Family History Family History Other Rheumatoid arthritis Mother Rheumatoid arthritis Social History Social History Smoking status: Never smoker Substance use: never Gender identity (if verbalized by the patient): Female Spiritual care concerns: No Comments At time of signature, agree with nursing past medical, surgical, social and family history. There is no relevant family history pertinent to the presenting complaint Exam Narrative: GENERAL: Well-appearing, well-nourished, and in no acute distress. HEAD: Normocephalic, atraumatic. EYES: PERRLA, conjunctivae clear ENT: Mucous membranes moist. NECK: Supple. No lymphadenopathy CHEST: Clear to auscultation. No respiratory distress. HEART: Regular rate and rhythm. SKIN: Warm, dry. Erythematous papule surrounded by approximately 5 cm of Erythema without, induration with sharp margins noted under the left buttock. No vesicles, bullae, necrosis, ecchymosis, crepitus noted. NEURO: Alert and oriented x3. PSYCH: Normal mood and affect Course Course Emergency Course: Patient is aware of diagnosis, understands and agrees to treatment plan. Anticipatory guidance given. Patient agrees to follow-up as directed and is aware of reasons to seek care at the emergency department. Portions of this record may have been created with voice recognition software Level of Care: Express Care Visit Vital Signs Vital signs: Vital Signs Temperature 98.6 F 12/23/24 16:20 Pulse Rate 84 12/23/24 16:20 Respiratory Rate 20 12/23/24 16:20 Blood Pressure 113/58 L 12/23/24 16:20 Pulse Oximetry 99 12/23/24 16:20 Oxygen Delivery Room Air 12/23/24 16:20 Temperature 98.6 F 12/23/24 16:20 Pulse Rate 84 12/23/24 16:20 Respiratory Rate 20 12/23/24 16:20 Blood Pressure 113/58 L 12/23/24 16:20 Pulse Oximetry 99 12/23/24 16:20 Oxygen Delivery Room Air 12/23/24 16:20 Reviewed. MDM - Skin/Abscess/Foreign Bdy MDM Narrative Medical decision making narrative: I evaluated this in the express care. History is obtained from patient who is an independent historian and physical exam was performed.? Available medical records were reviewed. ? Exam findings and relevant testing show no acute concerns or changes; patient is non-toxic appearing and is in no distress. No risk factors or findings concerning for epidural abscess, diskitis, vertebral osteomyelitis, cord compression, cauda equina, vertebral fracture or bone malignancy, AAA, or pyelonephritis. Patient instructed to consider further imaging and workup through their primary care physician as an outpatient if symptoms persist. Does not appear at this time to be erythema multiforme, bullous, SJS, TEN; no evidence at this time to suggest RMSF, NSTI, endocarditis or Lyme disease; patient looks well, nontoxic and is tolerating oral intake; no neurologic signs or symptoms; no headache, photophobia or neck pain; afebrile.? Patient does not have history of of penetrating trauma, laceration, blunt trauma, recent surgery, immunosuppression, malignancy, obesity, alcoholism, corticosteroid use.? Discussed the importance of follow-up, patient agrees; question, cellulitis versus necrotizing soft tissue infection versus abscess.?? Patient is appropriate for outpatient treatment and follow-up. Critical Care Time Critical Care Time Critical Care Time: No Discharge Plan Discharge Clinical Impression: Erysipelas Patient Disposition: Home Condition: Stable Instructions: Antibiotic Form, Cellulitis (ED) Additional Instructions: Please follow up with your Primary Care Doctor within 48-72 hours - call for an appointment. Apply moist heat 3-4 times daily for 10-15 minutes. Take Motrin 600mg every 8 hours with food for pain. Please take Antibiotics as directed. If you experience any worsening redness, swelling, streaking (red lines), fever or chills please go to the ER Patient Language: Turkmen Prescriptions: New amoxicillin 875 mg tablet 875 mg PO Q12H 10 Days Qty: 20 0RF Follow-up/Referrals: Man,ARNOLD Castillo [Primary Care Provider] - Time of Disposition: 16:34
== END 2024-12-23 16:36 | disposition home or self-care (01) ==
PROVIDERS: Emergency Provider Nurse Practitioner; PCP Registered Nurse
DX: A46 Erysipelas (principal)
CPT/HCPCS: 99213; G0463

== ENCOUNTER 2025-02-12 15:39 | Outpatient (CLI) | payer SELFPAY ==
--- NOTE | ~2025-02-12 | US_ITS ---
US thyroid INDICATION: Abnormal TSH levels TECHNIQUE: Real-time sonographic images of the thyroid gland were obtained. COMPARISON: No prior studies for comparison. FINDINGS: The right thyroid lobe measures 5.4 x 1.7 x 2.1 cm. The left thyroid lobe measures 4.3 x 1 .4 x 1.6 cm. There is heterogeneous echotexture and echogenicity throughout the thyroid gland. No dis crete nodules identified. Increased vascular flow is present. IMPRESSION: 1. Heterogeneous thyroid without discrete nodule. Increased vascularity.. Reviewed, dictated and finalized at location A.
== END 2025-02-12 15:40 | disposition home or self-care (01) ==
PROVIDERS: PCP Registered Nurse; Visit Provider Registered Nurse
DX: R79.89 Other specified abnormal findings of blood chemistry (principal)
CPT/HCPCS: 76536